=== PATIENT | female | born 1980 | race African-American/Black ===

== ENCOUNTER 2016-06-03 22:37 | Emergency (ER) | payer OTHER ==
--- NOTE | 2016-06-04 01:33 | ER Document Report ---
ED GI/ - General Chief Complaint: Vag Bleeding, +preg <12wks Stated Complaint: VAGINAL BLEEDING Notes: The patient is a 36-year-old female, [id number] , presents with 1 day of vaginal bleeding and cramping. She says she is soaking through 1 pad every 3 hours. She has never had a miscarriage and has not seen an OB for this yet. Her blood type is O+. She denies lightheadedness, nausea, vomiting, diarrhea, constipation, dysuria or fevers. TRAVEL OUTSIDE OF THE [place] IN LAST 30 DAYS: No - Related Data Allergies/Adverse Reactions: No Known Allergies Allergy (Unverified 07/25/15 22:07) Past Medical History - General Information source: Patient - Social History Smoking Status: Unknown if Ever Smoked Family History: Reviewed & Not Pertinent Patient has suicidal ideation: No Patient has homicidal ideation: No Renal/ Medical History: Denies: Hx Peritoneal Dialysis - Immunizations Immunizations up to date: No Hx Diphtheria, Pertussis, Tetanus Vaccination: No Review of Systems - Review of Systems Notes: REVIEW OF SYSTEMS: CONSTITUTIONAL: -fevers, -chills EENT: -eye pain, -difficulty swallowing, -nasal congestion CARDIOVASCULAR:-chest pain, -syncope. RESPIRATORY: -cough, -SOB GASTROINTESTINAL: -abdominal pain, -nausea, -vomiting, -diarrhea, +vaginal bleeding GENITOURINARY: -dysuria, -hematuria MUSCULOSKELETAL: -back pain, -neck pain SKIN: -rash or skin lesions. HEMATOLOGIC: -easy bruising or bleeding. LYMPHATIC: -swollen, enlarged glands. NEUROLOGICAL: -altered mental status or loss of consciousness, -headache, - neurologic symptoms PSYCHIATRIC: -anxiety, -depression. ALL OTHER SYSTEMS REVIEWED AND NEGATIVE. Physical Exam - Vital signs Vitals: Temp Pulse Resp BP Pulse Ox 98.4 F 96 18 125/74 100 06/03/16 22:44 06/03/16 22:44 06/03/16 22:44 06/03/16 22:44 06/03/16 22:44 - Notes Notes: PHYSICAL EXAMINATION: GENERAL: Well-appearing, well-nourished and in no acute distress. HEAD: Atraumatic, normocephalic. EYES: Pupils equal round and reactive to light, extraocular movements intact, sclera anicteric, conjunctiva are normal. ENT: nares patent, oropharynx clear without exudates. Moist mucous membranes. NECK: Normal range of motion, supple without lymphadenopathy LUNGS: Breath sounds clear to auscultation bilaterally and equal. No wheezes rales or rhonchi. HEART: Regular rate and rhythm without murmurs ABDOMEN: Soft, nontender, normoactive bowel sounds. No guarding, no rebound. No masses appreciated. : No active bleeding, closed cervix, no laceration. EXTREMITIES: Normal range of motion, no pitting or edema. No cyanosis. NEUROLOGICAL: Cranial nerves grossly intact. Normal speech, normal gait. Normal sensory, motor, and reflex exams. PSYCH: Normal mood, normal affect. SKIN: Warm, Dry, normal turgor, no rashes or lesions noted. Course - Re-evaluation Re-evalutation: Patient appears well. Her blood type is O+. Ultrasound shows a single intrauterine gestation with an estimated gestational age of 10 weeks 4 days. She also has fibroids. Her cervix is closed. Patient has appointment with OB in 2 days. Will have her follow-up - Vital Signs Vital signs: Temp Pulse Resp BP Pulse Ox 98.4 F 96 18 125/74 100 06/03/16 22:44 06/03/16 22:44 06/03/16 22:44 06/03/16 22:44 06/03/16 22:44 - Diagnostic Test Radiology reviewed: Image reviewed, Reports reviewed Radiology results interpreted by me: OB US: Closed cervix, single intrauterine station with an estimated gestational age of 10 weeks 4 days. Fibroids. Discharge - Discharge Clinical Impression: Vaginal bleeding before 22 weeks gestation Condition: Good Disposition: HOME, SELF-CARE Additional Instructions: Your ultrasound shows a single intrauterine with an estimated gestational age of 10 weeks 5 days. Your cervix was closed and you have no active vaginal bleeding. You also had fibroids on your ultrasound. Follow-up with OB as scheduled in 2 days. : You are . care is best started as early in as possible. If you're unsure about continuing this , you should discuss this with your physician or with colleter at [facility]. You should take only medications approved by your physician. Acetaminophen can safely be taken for minor pains. As a rule, medication for chronic conditions such as asthma or seizures can safely be continued. You should discuss with the physician every medicine you take. Any regular exercise program can be continued. Talk to your physician, however, before engaging in competitive or demanding sports. Alcohol, smoking, and "street drugs" are dangerous to your baby. Cocaine is especially dangerous. Don't use any illicit drugs! BLEEDING DURING EARLY : You have been evaluated for passing blood while . While we take this symptom very seriously, most women with your degree of bleeding will go on to have a perfectly normal baby. At this time, there is no indication that a miscarriage will occur. (A miscarriage occurs when the fetus is abnormal. There is no medicine or treatment to prevent it.) A more serious cause of bleeding is tubal (or ectopic) . An ultrasound usually can show whether the is in the uterus or in the tube. Sometimes in early , no fetus is seen. In this case, careful follow-up, including repeat blood tests and repeat ultrasound, is necessary. Do not douche or have sex for at least a week, or until OK'd by the doctor. Don't use tampons. Call the doctor or return for re-examination if there is an increase in bleeding or cramping, extreme weakness, fainting, new abdominal pain, fever, or passage of tissue. FOLLOW-UP CARE: If you have been referred to a physician for follow-up care, call the physician s office for an appointment as you were instructed or within the next two days. If you experience worsening or a significant change in your symptoms (very heavy bleeding with large clots of blood, passage of tissue, more severe abdominal / pelvic pain or cramping, feeling faint or severe weakness, fever, etc.), notify the physician immediately or return to the Emergency Department at any time for re-evaluation. OBSTETRIC-GYNECOLOGIC (OB-FAMILY SERVICE AIDE) PHYSICIANS IN HUSTLE: The [facility] [address], [place] [phone] [facility] [address] [place] [address] [phone] For active duty and dependents diagnosed with a threatened or miscarriage, you should follow up in the following manner: Standard patients who have a local civilian provider should follow up with that provider. Patients of the Family Practice Clinic should call your Team Nurse at 8: 00 am the following morning for further instructions. If you are neither a Standard patient nor a patient of the Family Practice Clinic, you should follow up at the [facility] ([facility]) . Patients already enrolled in the [facility], Prime patients not assigned to the Family Practice Clinic, and Active Duty patients not assigned to Family Practice Clinic should report to the [facility] at 8:00 am the next morning that the [facility] is open and then you will be seen in the OB Clinic at 11:00 am. Prescriptions: Vit/Iron Fumarate/FA [ Tablet] 1 each PO DAILY #90 tablet Referrals: FABY FORD MD [ACTIVE STAFF] - Follow up as needed
[2016-06-04 03:26] VITALS: BP 119/67
== END 2016-06-04 03:25 | disposition home or self-care (01) ==
LOC: ER 22:37
DX: O46.91 Antepartum hemorrhage, unspecified, first trimester (principal)
CPT/HCPCS: 36415; 76817; 84702; 99284

== ENCOUNTER 2016-11-25 03:57 | Outpatient (CLI) | payer OTHER ==
[2016-11-25 04:47] LABS: APPEARANCE,URINE SLIGHTLY-CLOUDY; BILIRUBIN,URINE NEGATIVE (NEGATIVE); GLUCOSE, URINE NEGATIVE (NEGATIVE); KETONES,URINE NEGATIVE (NEGATIVE); LEUKOCYTE ESTERASE,URINE NEGATIVE (NEGATIVE); NITRITE,URINE NEGATIVE (NEGATIVE); PROTEIN,URINE 100 mg/dL (NEGATIVE); URINE SPECIFIC GRAVITY 1.011; UROBILINOGEN,URINE NEGATIVE mg/dL (<2.0)
[2016-11-25 04:49] LABS: AMNISURE (ROM) POSITIVE (NEGATIVE)
[2016-11-25 04:59] LABS: URINE BARBITURATES SCREEN NEGATIVE; URINE METHADONE SCREEN NEGATIVE; URINE OPIATES LOW NEGATIVE; URINE PHENCYCLIDINE SCREEN NEGATIVE
--- NOTE | 2016-11-25 05:40 | Non Stress Test Report ---
Non Stress Test Datetime Report Generated by CPN: 11/25/2016 05:39 DEMOGRAPHIC EGA NST: 34.6 INDICATION Indication for Study: Ordered by Provider VITAL SIGNS Temperature - NST: 98.4 Pulse - NST: 81 RESP - NST: 14 NBPSYS NST: 98 NBPDIA NST: 56 MONITORING Monitor Explained: Monitor Explained; Test Explained; Patient Verbalized Understanding Time on Monitor: 11/25/2016 04:13 Time off Monitor: 11/25/2016 04:57 NST Duration: 44 NST INTERVENTIONS NST Interventions: IV Fluids Physician Notified NST: Dr Laughlin BABY A: [id number] BABY A Movement : Present Contraction Frequency : irreg FHR Baseline : 135 Accelerations : 10X10 Decelerations : None Variability : Moderate 6-25bpm NST Review: Does Not Meet Criteria for Reactive NST NST Review and Verified By : Chalman, A. RN NST Results: Non-Reactive NST COMMENTS NST Comments: pt. left Against Medical Advice NST REPORT Report Trigger: Send Report
== END 2016-11-25 04:18 | disposition left against medical advice (07) ==
LOC: LC 03:57 → LR 04:18 → UNDOADMIN 04:18 → LC 04:18 → UNDODISIN 05:27
PROVIDERS: ATTEND Obstetrics & Gynecology
PROC: 4A1HXCZ Monitoring of Products of Conception, Cardiac Rate, External Approach (ICD-10-PCS; principal; 2016-11-25)
DX: Z03.79 Encounter for other suspected maternal and fetal conditions ruled out (principal)
CPT/HCPCS: 59025; 80307; 81001; 84112

== ENCOUNTER 2017-01-27 20:18 | Observation (INO) | payer OTHER, MEDICAID ==
--- NOTE | 2017-01-27 20:49 | ER Document Report ---
ED General - General Chief Complaint: Numbness Stated Complaint: LEFT SIDE NUMBNESS Time Seen by Provider: 01/27/17 20:30 Mode of Arrival: Ambulatory Information source: Patient TRAVEL OUTSIDE OF THE [place] IN LAST 30 DAYS: No - HPI Notes: Patient is a pleasant 36-year-old female who gave 2 months ago without any complication or eclamptic state or hypertension by due to uterine fibroids presents emergency department with report that she was seated and got up to go change her daughter and had a sudden onset of left facial and left arm weakness and numbness. She states she was not turning her head or tilting her neck prior to the event. She states that she had no right-sided symptoms. She denies feeling anxious, although family states she has been somewhat stressed related to the new of her daughter. The patient denies any palpitations or chest pain or difficulty breathing. She denies a true aphasia, but stated that she felt like her words were not coming out correctly because she was not moving the left side of her face appropriately. She reported no headache. The patient states symptoms gradually resolved over the course of about 5 minutes. She denies any previous episodes. Family history stroke in a grandmother in her 70s. Patient does not smoke or drink. Medications none. No known drug allergies. Patient is currently bottlefeeding. History of and fibroids. - Related Data Allergies/Adverse Reactions: No Known Allergies Allergy (Unverified 07/25/15 22:07) Past Medical History - General Information source: Patient - Social History Smoking Status: Never Smoker Frequency of alcohol use: None Drug Abuse: None Lives with: Family - Family appropriate at the bedside. Family History: Reviewed & Not Pertinent Renal/ Medical History: Denies: Hx Peritoneal Dialysis - Immunizations Immunizations up to date: No Hx Diphtheria, Pertussis, Tetanus Vaccination: No Review of Systems - Review of Systems Notes: REVIEW OF SYSTEMS: CONSTITUTIONAL : Denies fever, chills, or sweats. Denies recent illness. EENT: Denies eye, ear, throat, or mouth pain or symptoms. Denies nasal or sinus congestion or discharge. Denies throat, tongue, or mouth swelling or difficulty swallowing. CARDIOVASCULAR: Denies chest pain. Denies palpitations or racing or irregular heart beat. Denies ankle edema. RESPIRATORY: Denies cough, cold, or chest congestion. Denies shortness of breath, difficulty breathing, or wheezing. GASTROINTESTINAL: Denies abdominal pain or distention. Denies nausea, vomiting , or diarrhea. Denies blood in vomitus, stools, or per rectum. Denies black, tarry stools. Denies constipation. GENITOURINARY: Denies difficulty urinating, painful urination, burning, frequency, blood in urine, or discharge. FEMALE GENITOURINARY: Denies vaginal bleeding, heavy or abnormal periods, irregular periods. Denies vaginal discharge or odor. MUSCULOSKELETAL: Denies back or neck pain or stiffness. Denies joint pain or swelling. SKIN: Denies rash, lesions or sores. HEMATOLOGIC : Denies easy bruising or bleeding. LYMPHATIC: Denies swollen, enlarged glands. NEUROLOGICAL: Denies confusion or altered mental status. Denies passing out or loss of consciousness. Reports feeling mildly lightheaded Briefly. Denies headache. Denies problems with gait or speech. Denies seizures. PSYCHIATRIC: Denies anxiety or stress. Denies depression, suicidal ideation, or homicidal ideation. ALL OTHER SYSTEMS REVIEWED AND NEGATIVE. Dictation was performed using [employer] voice recognition software is Physical Exam - Vital signs Vitals: Pulse Resp BP Pulse Ox 84 17 124/75 100 01/27/17 20:21 01/27/17 20:21 01/27/17 20:21 01/27/17 20:21 - Notes Notes: PHYSICAL EXAMINATION: GENERAL: Well-appearing, well-nourished and in no acute distress. HEAD: Atraumatic, normocephalic. EYES: Pupils equal round and reactive to light, extraocular movements intact, conjunctiva are normal. ENT: Nares patent, oropharynx clear without exudates. Moist mucous membranes. NECK: Normal range of motion, supple without lymphadenopathy. No carotid bruits. LUNGS: Breath sounds clear to auscultation bilaterally and equal. No wheezes rales or rhonchi. HEART: Regular rate and rhythm without murmurs ABDOMEN: Soft, nontender, nondistended abdomen. No guarding, no rebound. No masses appreciated. Female : deferred Musculoskeletal: Normal range of motion, no pitting or edema. No cyanosis. NEUROLOGICAL: Cranial nerves 2 through 12 intact. Normal speech, normal gait. Normal sensory, motor exams. No cerebellar ataxia. Normal reflexes. Patient is alert and oriented 3. PSYCH: Normal mood, normal affect. SKIN: Warm, Dry, normal turgor, no rashes or lesions noted. Course - Re-evaluation Re-evalutation: 01/27/17 20:52 Initial blood pressure stable. Patient was placed on school bus monitor. No ectopy noted. Head CT is negative. Lab studies normal. Blood pressures normal. No obvious evidence for vasculitis, and patient denies any headache or vision change or scalp tenderness. Unclear if this is an anxiety component, but somewhat unusual with only left-sided symptoms and with a left-sided weakness, although this lasted less than 5 minutes by report. Cannot completely exclude TIA given the symptoms. Patient is 2 months , so eclamptic state not possible, and there was no seizure activity noted. Repeat neurologic exam unchanged. No deficit identified. Discussion was undertaken with the patient and family and they were in agreement with admission for observation. Discussion was undertaken with Dr. Mclaughlin who agreed to admit to telemetry observation. Orthostatics ordered. 01/27/17 23:06 01/27/17 23:09 - Vital Signs Vital signs: Temp Pulse Resp BP Pulse Ox 98.6 F 99 18 124/74 100 01/27/17 20:24 01/27/17 20:24 01/27/17 20:36 01/27/17 20:36 01/27/17 20:36 - Laboratory Result Diagrams: 01/27/17 20:35 01/27/17 20:35 Laboratory results interpreted by me: 01/27/17 01/27/17 01/27/17 20:35 20:35 20:35 MCH 26.9 L Seg Neutrophils % 25.0 L Lymphocytes % 58.3 H Absolute Neutrophils 1.2 L ESR 22 H Glucose 126 H - EKG Interpretation by Ca EKG shows normal: Sinus rhythm Additional EKG results interpreted by me: 01/27/17 20:52 EKG as interpreted by id showed normal sinus rhythm heart rate of 93. There was artifact on the EKG. There was no gross evidence for acute MO or ischemia noted. There is no old EKG available for comparison. Critical Care Note - Critical Care Note Total time excluding time spent on procedures (mins): 36 Discharge - Discharge Clinical Impression: Numbness and tingling in left arm, Weakness Condition: Stable Disposition: ADMITTED OBSERVATION Admitting Provider: Hospitalist Unit Admitted: Telemetry
[2017-01-27 20:55] LABS: ABSOLUTE BASOPHILS # (AUTO) 0.1 10^3/uL (0.0-0.2); ABSOLUTE EOSINOPHILS # (AUTO) 0.2 10^3/uL (0.0-0.6); ABSOLUTE LYMPHOCYTES (AUTO) 2.8 10^3/uL (0.5-4.7); ABSOLUTE MONOCYTES (AUTO) 0.5 10^3/uL (0.1-1.4); ABSOLUTE NEUT (AUTO) 1.2 10^3/uL (1.7-8.2); EOSINOPHILS % (AUTO) 4.9 % (0-6); HEMATOCRIT 37.8 % (36.0-47.0); HEMOGLOBIN 12.5 g/dL (12.0-15.5); HGB HCT DIFFERENCE -0.3; LYMPHOCYTES % (AUTO) 58.3 % (13-45); MEAN CORPUSCULAR HEMOGLOBIN 26.9 pg (27.0-33.4); MEAN CORPUSCULAR VOLUME 82 fl (80-97); MONOCYTES % (AUTO) 10.8 % (3-13); RED BLOOD COUNT 4.64 10^6/uL (3.72-5.28); RED CELL DISTRIBUTION WIDTH 13.7 % (11.5-14.0); WHITE BLOOD COUNT 4.8 10^3/uL (4.0-10.5)
--- NOTE | 2017-01-27 20:58 | RADIOLOGY REPORT (SQ) ---
EXAM DESCRIPTION: CT HEAD WITHOUT COMPLETED DATE/TIME: 01/27/2017 8:50 pm REASON FOR STUDY: transient left arm and face numbness, weakness COMPARISON: None. TECHNIQUE: Axial images acquired through the brain without intravenous contrast. Images reviewed wi th bone, brain and subdural windows. Images stored on PACS. All CT scanners at this facility use dose modulation, iterative reconstruction, and/or weight based d osing when appropriate to reduce radiation dose to as low as reasonably achievable (ALARA). [facility]: Dose Right [facility]: CareDose [facility]: Dose Right [facility]: Teradose 4D [facility]: Derivix RADIATION DOSE: mGy. LIMITATIONS: None. FINDINGS: VENTRICLES: Normal size and contour. CEREBRUM: No masses. No hemorrhage. No midline shift. No evidence for acute infarction. Normal gra y/white matter differentiation. No areas of low density in the white matter. CEREBELLUM: No masses. No hemorrhage. No alteration of density. No evidence for acute infarction. EXTRAAXIAL SPACES: No fluid collections. No masses. ORBITS AND GLOBE: No intra- or extraconal masses. Normal contour of globe without masses. CALVARIUM: No fracture. PARANASAL SINUSES: No fluid or mucosal thickening. SOFT TISSUES: No mass or hematoma. OTHER: No other significant finding. IMPRESSION: NORMAL BRAIN CT WITHOUT CONTRAST. EVIDENCE OF ACUTE STROKE: NO. COMMENT: Quality ID # [id number]: Final reports with documentation of one or more dose reduction techniques (e.g., Automated exposure control, adjustment of the mA and/or kV according to patient size, use of iterative reconstruction technique) TECHNICAL DOCUMENTATION: JOB ID: [id number] [employer]- All Rights Reserved
[2017-01-27 21:01] LABS: ALANINE AMINOTRANSFERASE 25 U/L (9-52); ALBUMIN 4.1 g/dL (3.5-5.0); ALKALINE PHOSPHATASE 67 U/L (38-126); ANION GAP 16 (5-19); ASPARTATE AMINO TRANSFERASE 20 U/L (14-36); BILIRUBIN,DIRECT 0.2 mg/dL (0.0-0.4); BILIRUBIN,TOTAL 0.3 mg/dL (0.2-1.3); BLOOD UREA NITROGEN 9 mg/dL (7-20); CALCIUM 9.5 mg/dL (8.4-10.2); CARBON DIOXIDE 24 mmol/L (22-30); CHLORIDE 104 mmol/L (98-107); CREATININE RESULT 1.01 mg/dL (0.52-1.25); GLUCOSE 126 mg/dL (75-110); MAGNESIUM 1.9 mg/dL (1.6-2.3); POTASSIUM 3.7 mmol/L (3.6-5.0); SODIUM 143.8 mmol/L (137-145); TOTAL PROTEIN 7.4 g/dL (6.3-8.2)
[2017-01-27 21:16] LABS: PROTHROMBIN TIME 12.7 SEC (11.4-15.4)
[2017-01-27] MEDS ORDERED: ATORVASTATIN CALCIUM 80 MG TABLET PO SCH (22:00)
[2017-01-27] MEDS ORDERED: DOCUSATE SODIUM 100 MG CAPSULE PO PRN (22:07)
[2017-01-27] MEDS ORDERED: ACETAMINOPHEN 325 MG TABLET PO PRN (22:07)
[2017-01-28 05:34] LABS: ABSOLUTE EOSINOPHILS # (AUTO) 0.2 10^3/uL (0.0-0.6); ABSOLUTE LYMPHOCYTES (AUTO) 2.3 10^3/uL (0.5-4.7); ABSOLUTE MONOCYTES (AUTO) 0.6 10^3/uL (0.1-1.4); ABSOLUTE NEUT (AUTO) 1.2 10^3/uL (1.7-8.2); BASOPHILS % (AUTO) 1.1 % (0-2); EOSINOPHILS % (AUTO) 5.3 % (0-6); HEMOGLOBIN 11.8 g/dL (12.0-15.5); HGB HCT DIFFERENCE -0.6; LYMPHOCYTES % (AUTO) 53.2 % (13-45); MEAN CORPUSCULAR HEMOGLOBIN 26.9 pg (27.0-33.4); MEAN CORPUSCULAR HGB CONC 32.8 g/dL (32.0-36.0); MEAN CORPUSCULAR VOLUME 82 fl (80-97); MONOCYTES % (AUTO) 12.8 % (3-13); RED BLOOD COUNT 4.39 10^6/uL (3.72-5.28); RED CELL DISTRIBUTION WIDTH 13.6 % (11.5-14.0); SEGMENTED NEUTROPHILS % (AUTO) 27.6 % (42-78); WHITE BLOOD COUNT 4.3 10^3/uL (4.0-10.5)
[2017-01-28] MEDS: HEPARIN SOD (PORCINE) 5,000 UNIT/ML 1 ML SYRINGE SUBCUT SCH ×2 (05:38→13:39)
[2017-01-28 05:59] LABS: CHOLESTEROL 172.72 mg/dL (0-200); Direct HDL 51 mg/dL (>40); TRIGLYCERIDES 75 mg/dL (<150)
[2017-01-28 06:10] LABS: DIRECT LDL 104 mg/dL (<100)
[2017-01-28 06:24] LABS: BILIRUBIN,URINE NEGATIVE (NEGATIVE); GLUCOSE, URINE NEGATIVE (NEGATIVE); KETONES,URINE NEGATIVE (NEGATIVE); LEUKOCYTE ESTERASE,URINE TRACE (NEGATIVE); NITRITE,URINE NEGATIVE (NEGATIVE); PROTEIN,URINE NEGATIVE (NEGATIVE); URINE SPECIFIC GRAVITY 1.017
[2017-01-28 06:25] LABS: APPEARANCE,URINE CLEAR
--- NOTE | 2017-01-28 07:19 | PDOC H&P ---
History of Present Illness Admission Date/PCP: 01/27/17 23:18 Patient complains of: Left arm weakness History of Present Illness: ASHLY CRAIG is a 36 year old female without past medical history who had been in her usual state of health until 1 hour prior to presentation. Patient developed sudden onset of left arm and shoulder weakness followed by numbness lasting approximately 2 minutes in total. She denies previous episode headache , blurred vision, palpitations, fever nausea vomiting or diaphoresis. She denies recent change in medications. She admits to occasional lightheadedness when standing from a sitting or lying position. She is currently asymptomatic, initial workup is unremarkable she is referred to the hospitalist for observation. Social History Information Source: Patient Lives with: Family - Family appropriate at the bedside. Smoking Status: Never Smoker Frequency of Alcohol Use: None Hx Recreational Drug Use: No Drugs: None Hx Prescription Drug Abuse: No - Advance Directive Resuscitation Status: Full Code Family History Family History: Hypertension Parental Family History Reviewed: Yes Children Family History Reviewed: Yes Sibling(s) Family History Reviewed.: Yes Medication/Allergy Home Medications: Vit/Iron Fum/Folic AC [ Tablet] 1 each PO DAILY #90 tablet Allergies/Adverse Reactions: No Known Allergies Allergy (Unverified 07/25/15 22:07) Review of Systems Constitutional: ABSENT: chills, fever(s), headache(s), weight gain, weight loss Eyes: ABSENT: visual disturbances Ears: ABSENT: hearing changes Cardiovascular: ABSENT: chest pain, dyspnea on exertion, edema, orthropnea, palpitations Respiratory: ABSENT: cough, hemoptysis Gastrointestinal: ABSENT: abdominal pain, constipation, diarrhea, hematemesis, hematochezia, nausea, vomiting Genitourinary: ABSENT: dysuria, hematuria Musculoskeletal: ABSENT: joint swelling Integumentary: ABSENT: rash, wounds Neurological: ABSENT: abnormal gait, abnormal speech, confusion, dizziness, focal weakness, syncope Psychiatric: ABSENT: anxiety, depression, homidical ideation, suicidal ideation Endocrine: ABSENT: cold intolerance, heat intolerance, polydipsia, polyuria Hematologic/Lymphatic: ABSENT: easy bleeding, easy bruising Physical Exam Vital Signs: Temp Pulse Resp BP Pulse Ox 98.6 F 87 18 110/64 100 01/28/17 04:20 01/28/17 04:20 01/28/17 04:20 01/28/17 04:20 01/28/17 04:20 Intake & Output 01/26/17 01/27/17 01/28/17 11:59 11:59 11:59 Intake Total 5 Output Total 600 Balance -595 Weight 75.8 kg General appearance: PRESENT: no acute distress, well-developed, well-nourished Head exam: PRESENT: atraumatic, normocephalic Eye exam: PRESENT: conjunctiva pink, EOMI, PERRLA. ABSENT: scleral icterus Ear exam: PRESENT: normal external ear exam Mouth exam: PRESENT: moist, tongue midline Neck exam: ABSENT: carotid bruit, JVD, lymphadenopathy, thyromegaly Respiratory exam: PRESENT: clear to auscultation evaristo. ABSENT: rales, rhonchi, wheezes Cardiovascular exam: PRESENT: RRR. ABSENT: diastolic murmur, rubs, systolic murmur Pulses: PRESENT: normal dorsalis pedis pul Vascular exam: PRESENT: normal capillary refill GI/Abdominal exam: PRESENT: normal bowel sounds, soft. ABSENT: distended, guarding, mass, organolmegaly, rebound, tenderness Rectal exam: PRESENT: deferred Extremities exam: PRESENT: full ROM. ABSENT: calf tenderness, clubbing, pedal edema Neurological exam: PRESENT: alert, awake, oriented to person, oriented to place , oriented to time, oriented to situation, CN II-XII grossly intact. ABSENT: motor sensory deficit Psychiatric exam: PRESENT: appropriate affect, normal mood. ABSENT: homicidal ideation, suicidal ideation Skin exam: PRESENT: dry, intact, warm. ABSENT: cyanosis, rash Results Laboratory Results: 01/28/17 05:03 01/28/17 01/28/17 01/28/17 05:03 05:03 05:39 WBC 4.3 RBC 4.39 Hgb 11.8 L Hct 36.0 MCV 82 MCH 26.9 L MCHC 32.8 RDW 13.6 Plt Count 223 Seg Neutrophils % 27.6 L Lymphocytes % 53.2 H Monocytes % 12.8 Eosinophils % 5.3 Basophils % 1.1 Absolute Neutrophils 1.2 L Absolute Lymphocytes 2.3 Absolute Monocytes 0.6 Absolute Eosinophils 0.2 Absolute Basophils 0.0 Triglycerides 75 Cholesterol 172.72 LDL Cholesterol Direct 104 H VLDL Cholesterol 15.0 HDL Cholesterol 51 Urine Color YELLOW Urine Appearance CLEAR Urine pH 7.0 Ur Specific [place] 1.017 Urine Protein NEGATIVE Urine Glucose (UA) NEGATIVE Urine Ketones NEGATIVE Urine Blood SMALL H Urine Nitrite NEGATIVE Ur Leukocyte Esterase TRACE H Urine WBC (Auto) 4 Urine RBC (Auto) 19 Impressions: Head CT 01/27/17 20:43 IMPRESSION: NORMAL BRAIN CT WITHOUT CONTRAST. EVIDENCE OF ACUTE STROKE: NO. Assessment & Plan - Diagnosis (1) TIA (transient ischemic attack) Is this a current diagnosis for this admission?: Yes Plan: TIA versus adjustment disorder with anxiety versus orthostatic hypotension, telemetry observation follow-up orthostatic vital signs, MRI, ESR, thyroid function, lipid profile. (2) Adjustment disorder Is this a current diagnosis for this admission?: Yes Plan: Unplanned , 2 months history of anxiety with first child 13 years ago. Reassurance and consider trial of SSRI - Time Time Spent: 30 to 50 Minutes - Inpatient Certification Medical Necessity: Need Close Monitoring Due to Risk of Patient Decompensation
[2017-01-28] MEDS ORDERED: ASPIRIN 81 MG TABLET, ENT COATED PO SCH (10:00)
--- NOTE | 2017-01-28 13:05 | RADIOLOGY REPORT (SQ) ---
EXAM DESCRIPTION: MRI HEAD WITHOUT COMPLETED DATE/TIME: 01/28/2017 8:48 am REASON FOR STUDY: tia COMPARISON: None. TECHNIQUE: Multiplanar imaging includes non-contrasted T1, T2, FLAIR, and diffusion with ADC map seq uences. Images stored on PACS. LIMITATIONS: None. FINDINGS: ANATOMY: No anomalies. Normal vascular flow voids. Pituitary fossa normal. CSF SPACES: Normal in size and contour. No hemorrhage. CEREBRUM: Sulci and gyri normal in size and contour. Normal white matter signal on FLAIR imaging. No evidence of hemorrhage, mass, or extraaxial fluid collection. POSTERIOR FOSSA: No signal alteration. No hemorrhage. No edema, masses or mass effect. Internal mike tory canals, cerebello-pontine angles, mastoids normal. DIFFUSION IMAGING: Negative for acute or sub-acute infarction. ORBITS: No masses. Globes normal. PARANASAL SINUSES: No fluid levels. Mucosa normal. OTHER: No other significant finding. IMPRESSION: NORMAL MRI OF THE BRAIN WITHOUT INTRAVENOUS GADOLINIUM CONTRAST. EVIDENCE OF ACUTE STROKE: NO. TECHNICAL DOCUMENTATION: JOB ID: [id number]- All Rights Reserved
--- NOTE | 2017-01-28 15:27 | PDOC DISCHARGE SUMMARY ---
General - Admit/Disc Date/PCP Admission Date/Primary Care Provider: 01/27/17 23:18 Discharge Date: 01/28/17 - Discharge Diagnosis (1) TIA (transient ischemic attack) Is this a current diagnosis for this admission?: Yes Summary: The patient was admitted for TIA work-up after presenting to the Emergency Department with a report of left facial and left arm numbness and weakness lasting approximately 2 minutes. She was admitted to the [facility] on continuous cardiac telemetry. Laboratory work up revealed normal TSH, elevated LDL (104), A1C of 5.1% and a essentially normal Chem12. A Head CT and follow up MRI were obtained; both normal and without evidence of a CVA. She will be discharged to home on ASA 81 mg and high dose Lipitor with instructions to follow up with her primary care provider within 1-2 weeks. (2) Adjustment disorder Is this a current diagnosis for this admission?: Yes Summary: Pt is now 2 months to a 6 week premature infant (unplanned ) . The pt admits to elevated stress and fatigue secondary to adjustment to new infant. She is encouraged to utilize social and family supports, provide self care, and to follow up with primary care provider as above. (3) Numbness and tingling in left arm Is this a current diagnosis for this admission?: Yes Summary: Resolved prior to arrival; secondary to #1. - Additional Information Resuscitation Status: Full Code Discharge Diet: As Tolerated Discharge Activity: Activity As Tolerated Home Medications: Aspirin [Ecotrin 81 mg EC Tablet] 81 mg PO DAILY #90 tabec 01/28/17 Atorvastatin Calcium [Lipitor 80 mg Tablet] 80 mg PO QHS #30 tablet 01/28/17 History of Present Illness History of Present Illness: Per H&P by Dr. Mclaughlin: ASHLY CRAIG is a 36 year old female without past medical history who has been in her usual state of health until 1 hour prior to presentation. Patient developed sudden onset of left arm and shoulder weakness followed by numbness lasting approximately 2 minutes in total. She denies previous episode headache, blurred vision, palpitations, fever nausea vomiting or diaphoresis. She denies recent changes in medication. She admits to occasional lightheadedness when standing from a sitting or lying position. She is currently asymptomatic, initial workup is unremarkable she is referred to the hospitalist for observation. Physical Exam Vital Signs: Temp Pulse Resp BP Pulse Ox 98.5 F 87 16 103/69 99 01/28/17 12:17 01/28/17 14:00 01/28/17 12:17 01/28/17 12:20 01/28/17 12:20 Intake & Output 01/27/17 01/28/17 01/29/17 06:59 06:59 06:59 Intake Total 5 627 Output Total 600 Balance -595 627 Weight 75.8 kg General appearance: PRESENT: no acute distress, well-developed, well-nourished, other - Overweight Head exam: PRESENT: atraumatic, normocephalic Eye exam: PRESENT: conjunctiva pink, EOMI, PERRLA. ABSENT: scleral icterus Ear exam: PRESENT: normal external ear exam Mouth exam: PRESENT: moist, tongue midline Neck exam: ABSENT: carotid bruit, JVD, lymphadenopathy, thyromegaly Respiratory exam: PRESENT: clear to auscultation evaristo. ABSENT: rales, rhonchi, wheezes Cardiovascular exam: PRESENT: RRR. ABSENT: diastolic murmur, rubs, systolic murmur Pulses: PRESENT: normal dorsalis pedis pul Vascular exam: PRESENT: normal capillary refill GI/Abdominal exam: PRESENT: normal bowel sounds, soft. ABSENT: distended, guarding, mass, organolmegaly, rebound, tenderness Rectal exam: PRESENT: deferred Extremities exam: PRESENT: full ROM. ABSENT: calf tenderness, clubbing, pedal edema Neurological exam: PRESENT: alert, awake, oriented to person, oriented to place , oriented to time, oriented to situation, CN II-XII grossly intact. ABSENT: motor sensory deficit Psychiatric exam: PRESENT: appropriate affect, normal mood. ABSENT: homicidal ideation, suicidal ideation Skin exam: PRESENT: dry, intact, warm. ABSENT: cyanosis, rash Results Laboratory Results: 01/28/17 05:03 01/28/17 01/28/17 01/28/17 05:03 05:03 05:39 WBC 4.3 RBC 4.39 Hgb 11.8 L Hct 36.0 MCV 82 MCH 26.9 L MCHC 32.8 RDW 13.6 Plt Count 223 Seg Neutrophils % 27.6 L Lymphocytes % 53.2 H Monocytes % 12.8 Eosinophils % 5.3 Basophils % 1.1 Absolute Neutrophils 1.2 L Absolute Lymphocytes 2.3 Absolute Monocytes 0.6 Absolute Eosinophils 0.2 Absolute Basophils 0.0 Triglycerides 75 Cholesterol 172.72 LDL Cholesterol Direct 104 H VLDL Cholesterol 15.0 HDL Cholesterol 51 Urine Color YELLOW Urine Appearance CLEAR Urine pH 7.0 Ur Specific [place] 1.017 Urine Protein NEGATIVE Urine Glucose (UA) NEGATIVE Urine Ketones NEGATIVE Urine Blood SMALL H Urine Nitrite NEGATIVE Ur Leukocyte Esterase TRACE H Urine WBC (Auto) 4 Urine RBC (Auto) 19 Impressions: Head CT 01/27/17 20:43 IMPRESSION: NORMAL BRAIN CT WITHOUT CONTRAST. EVIDENCE OF ACUTE STROKE: NO. Head MRI 01/28/17 00:00 IMPRESSION: NORMAL MRI OF THE BRAIN WITHOUT INTRAVENOUS GADOLINIUM CONTRAST. EVIDENCE OF ACUTE STROKE: NO. Qualifiers PATEINT BEING DISCHARGED WITH ANY OF THE FOLLOWING DIAGNOSIS?: No Plan Discharge Plan: Discharge to home with self care. To follow up with primary care provider within 1-2 weeks. Time Spent: Less than 30 Minutes
[2017-01-28 15:43] VITALS: BP 101/63
== END 2017-01-28 16:12 | disposition home or self-care (01) ==
LOC: ER 20:18 → EH 23:18 → 3S 01-28 01:22
PROVIDERS: ADMIT Internal Medicine; ATTEND Internal Medicine
DX: O90.89 Other complications of the puerperium, not elsewhere classified (principal); G45.9 Transient cerebral ischemic attack, unspecified; R20.0 Anesthesia of skin; O99.345 Other mental disorders complicating the puerperium; F43.20 Adjustment disorder, unspecified; Z82.49 Family history of ischemic heart disease and other diseases of the circulatory system; Z82.3 Family history of stroke
CPT/HCPCS: 99291; 36415 ×2; 83735; 84443; 85025 ×2; 85652; 85610; 81025; 80053; 81001; 83036; 80061; 70551; 70450; G0378 ×2; J1644; J3490